=== PATIENT | male | born 1965 | race Caucasian/White ===

== ENCOUNTER 2021-11-14 16:33 | Outpatient (REF) | payer OTHER, SELFPAY | END 2021-11-14 16:34 | disposition home or self-care (01) | LOC: LBN 16:33 | PROVIDERS: Visit Provider Physician Assistant | DX: N39.0 Urinary tract infection, site not specified (principal) | CPT/HCPCS: 87086 ==

== ENCOUNTER 2021-11-28 16:01 | Outpatient (REF) | payer OTHER, SELFPAY ==
[2021-11-28 12:25] LABS: Absolute Basophil Count 0.03 10^3/uL (0.0-0.2); Absolute Eosinophil Count 0.11 10^3/uL (0.0-0.7); Absolute Lymphocyte Count 0.61 10^3/uL (1.2-3.4); Absolute Monocyte Count 0.42 10^3/uL (0.1-0.8); Basophils % 0.4; Eosinophils % 1.6; HCT 46.2 % (40.0-50.0); HGB 15.1 g/dL (13.5-17.5); Immature Grans % 1.4; Lymphocytes % 8.8; MCHC 32.7 % (32.0-36.0); MCV 89 fL (80-95); MPV 11.2 fL (8.0-11.0); Neutrophils % 81.8; Platelet Count 218 10^3/uL (130-400); RDW 12.9 % (11.8-14.1); RDW-SD 42.2 fL; WBC 6.97 10^3/uL (4.4-10.8)
[2021-11-28 13:19] LABS: ALT 88 U/L (16-63); AST 38 U/L (15-37); Albumin 3.8 g/dL (3.4-5.0); Alkaline Phosphatase 94 U/L (46-116); Anion Gap 9.7 mmol/L (3-11); BUN 16 mg/dL (7-18); Bilirubin, Total 0.4 mg/dL (0.2-1.0); CO2 27.3 mmol/L (21.0-32.0); CREATININE 1.1 mg/dL (0.70-1.30); Calcium 8.9 mg/dL (8.5-10.1); Chloride 101 mmol/L (98-107); Glucose 108 mg/dL (74-106); Potassium 5.1 mmol/L (3.5-5.1); Sodium 138 mmol/L (136-145); Total Protein 7.7 g/dL (6.4-8.2)
[2021-11-29 10:08] LABS: Lyme Ab w Rflx to Lyme Confirm Negative (Negative)
[2021-11-29 14:59] LABS: COVID-19 RT-PCR UVMMC Result Negative (Negative)
[2021-11-29 23:15] LABS: Anaplasma phagocytophilum Negative (Negative); B. miyamotoi PCR Negative (Negative); Babesia divergens/MO-1 Negative (Negative); Babesia duncani Negative (Negative); Babesia microti Negative (Negative); Ehrlichia chaffeensis Negative (Negative); Ehrlichia ewingii/canis Negative (Negative); Ehrlichia muris eauclairensis Negative (Negative)
== END 2021-11-28 16:02 | disposition home or self-care (01) ==
LOC: NCHCN 16:01
PROVIDERS: Visit Provider Physician Assistant
DX: R51.9 Headache, unspecified (principal); R53.83 Other fatigue; R50.9 Fever, unspecified; Z20.822 Contact with and (suspected) exposure to COVID-19
CPT/HCPCS: 80053; 87798; U0003; 85025; 86618